=== PATIENT | female | born 1950 | race Caucasian/White ===

== ENCOUNTER → 2023-07-29 11:50 | Outpatient (REF) | payer MEDICARE, SELFPAY | LOC: HWWDC 11:50 | PROVIDERS: ATTENDING PHYSICIAN Family Medicine Geriatric Medicine | DX: Z12.31 Encounter for screening mammogram for malignant neoplasm of breast (principal) | CPT/HCPCS: 77063; 77067 ==

== ENCOUNTER → 2024-08-26 11:29 | Outpatient (REF) | payer MEDICARE, SELFPAY | LOC: HWWDC 11:29 | PROVIDERS: ATTENDING PHYSICIAN Family Medicine Geriatric Medicine; FAMILY PHYSICIAN Internal Medicine | DX: Z12.31 Encounter for screening mammogram for malignant neoplasm of breast (principal) | CPT/HCPCS: 77063; 77067 ==